=== PATIENT | female | born 1990 | race Caucasian/White ===

== ENCOUNTER 2019-09-17 17:52 | Emergency (ER) | payer MEDICAID, SELFPAY ==
[2019-09-17 18:29] VITALS: BP 113/77; RESP 16; TEMP 36.8; O2SAT 98; BMI 25.2
--- NOTE | 2019-09-17 18:53 | ED_ITS ---
Entered by Rere Jesus, acting as scribe for Sep 17, 2019 17:52 HPI - Psych General: Chief Complaint: Psychiatric Symptoms Stated Complaint: MHE/96 hr hold Time Seen by Provider: 09/17/19 18:52 Source: patient and police Mode of arrival: ambulatory Limitations: no limitations History of Present Illness: HPI Narrative: 29 yo female presents with being on a 96 hold from family. pt states she is fine and denies SI and HI. pt states she was brought in by police and she states only thing is she stopped talking to her mother over a family fight and they are mad. pt denies any other symptoms at this time. complaint: other (pt denies SI or HI states mother 96'd her and she was brought in by police) Onset (ago): hour(s) (today) Duration: other (pt has had depression since she was 14) History of same: Yes Relieving factors: none Exacerbating factors: other (family fighting at [place]) Associated psychiatric symptoms: depression Associated symptoms: Reports depression; Deny homicidal ideation or suicidal ideation Treatments prior to arrival: none Details of plan: no plan Denies SI and HI Review of Systems Const: Denies: fever or chills Eyes: Denies: change in vision ENMT: Denies: throat pain or mouth pain Card: Denies: chest pain Resp: Denies: shortness of breath GI: Denies: abdominal pain, nausea, vomiting or diarrhea : Denies: difficulty urinating Musc: Denies: back pain or joint pain Skin/Breast: Denies: rash Neuro: Denies: headache or behavioral changes Psych: Reports: depression; Denies: suicidal ideation or homicidal ideation Endo: Denies: excessive urination Charles/Lymph: Denies: easy bruising All/Imm: Denies: hives PFSH ED PFSH: Statuses (acute, chronic, etc) shown below reflect problem list status as previously entered and may not be historically accurate Medical History (Updated 09/17/19 @ 22:00 by Estefany Gomez MD) History of depression (Acute) Social History Smoking and tobacco status: current every day smoker Physical Exam Const: COMMON NORMALS: no apparent distress, oriented x3 and healthy appearing HENMT: COMMON NORMALS: normocephalic and external nose normal HEAD & SCALP: normocephalic NOSE: external nose normal Eye: COMMON NORMALS: PERRL PUPIL: Yes PERRL Neck/C-Spine: COMMON NORMALS: full ROM and no lymphadenopathy Chest: COMMONS NORMALS: inspection of chest normal Resp: COMMON NORMALS: normal respiratory effort, no use of accessory muscles and clear to auscultation bilaterally AUSCULTATION: clear to auscultation bilaterally Cardio: COMMON NORMALS: regular rate and regular rhythm RATE: regular rate RHYTHM: regular rhythm GI: COMMON NORMALS: normal to inspection, nondistended, normoactive bowel sounds, soft to palpation, non-tender and no masses PALPATION: Yes soft Back/Pelvis: THORACIC SPINE/UPPER BACK: Yes normal to inspection Extremity: COMMON NORMALS: normal to inspection, full ROM and normal capillary refill Neuro: COMMON NORMALS: oriented x3 Psych: COMMON NORMALS: mental status grossly normal and cooperative Skin: COMMON NORMALS: no rashes or lesions noted GENERAL SKIN EXAM: no rashes or lesions noted MDM - Psych MDM Narrative: Medical decision making narrative: Patient presents with depression. Patient's mother had filled out a 96-hour hold on her. I spoke to psychiatrist Dr. Cummings and he did not feel that she met inpatient criteria. Patient was seen in the ER by Dr. Cummings who rescinded her 96-hour hold. I agree with him as she has no signs of imminent harm here and has no signs of suicidality or homicidality. Patient is stable for discharge back home. Lab Data: Labs: Lab Results 09/17/19 09/17/19 09/17/19 Range/Units 19:00 19:00 19:17 WBC 11.4 H (4.0-10.0) 10^3/ uL RBC 4.68 (4.1-5.3) 10^6/u L Hgb 13.2 (11.5-15.3) g/dL Hct 40.1 (37.0-47.0) % MCV 85.7 (81-99) fL MCH 28.2 (28.0-34.0) pg MCHC 32.9 (30.0-36.0) g/dL RDW 11.9 L (12.1-15.1) % Plt Count 316 (130-400) 10^3/c mm MPV 10.4 (7.4-10.4) fL Neut % (Auto) 86.0 % Lymph % (Auto) 10.6 % [place] % (Auto) 2.6 % Eos % (Auto) 0.2 % Baso % (Auto) 0.2 % Neut # (Auto) 9.8 H (1.8-7.7) 10^3/u L Lymph # (Auto) 1.2 (0.8-4.8) 10^3/u L [place] # (Auto) 0.3 (0.2-0.9) 10^3/u L Eos # (Auto) 0.0 (0.0-0.8) 10^3/u L Baso # (Auto) 0.0 (0.0-0.1) 10^3/u L Nucleated RBC % (a uto) 0 % Nucleated RBCs # 0.0 /100WBC Sodium (136-145) mmol/L Potassium (3.5-5.1) mmol/L Chloride (98-107) mmol/L Carbon Dioxide (22-29) mmol/L Anion Gap (5-19) BUN (6-20) mg/dL Creatinine (0.5-0.9) mg/dL GFR Calculation (90-130) mL/min Glucose (74-109) mg/dL Calcium (8.6-10.0) mg/Dl Total Bilirubin (0.15-1.2) mg/dL AST (0-32) U/L ALT (0-33) U/L Alkaline Phosphata se (35-105) IU/L Total Protein (6.6-8.7) g/dL Albumin (3.5-5.2) g/dL Globulin (1.3-4.6) g/dL HCG, Qual Negative (Negative) Salicylates (3-10) mg/dL Urine Opiates Scre en Negative (Negative) ng/mL Acetaminophen (10-30) ug/mL Ur Barbiturates Sc reen Negative (Negative) ng/mL Ur Phencyclidine S crn Negative (Negative) ng/mL Ur Amphetamines Sc reen Positive H (Negative) ng/mL U Benzodiazepines Scrn Negative (Negative) ng/mL Urine Cocaine Scre en Negative (Negative) ng/mL U Marijuana (THC) Screen Negative (Negative) ng/mL Ethyl Alcohol (0-10) mg/dL 01/13/20 Range/Units 19:17 WBC (4.0-10.0) 10^3/ uL RBC (4.1-5.3) 10^6/u L Hgb (11.5-15.3) g/dL Hct (37.0-47.0) % MCV (81-99) fL MCH (28.0-34.0) pg MCHC (30.0-36.0) g/dL RDW (12.1-15.1) % Plt Count (130-400) 10^3/c mm MPV (7.4-10.4) fL Neut % (Auto) % Lymph % (Auto) % [place] % (Auto) % Eos % (Auto) % Baso % (Auto) % Neut # (Auto) (1.8-7.7) 10^3/u L Lymph # (Auto) (0.8-4.8) 10^3/u L [place] # (Auto) (0.2-0.9) 10^3/u L Eos # (Auto) (0.0-0.8) 10^3/u L Baso # (Auto) (0.0-0.1) 10^3/u L Nucleated RBC % (a uto) % Nucleated RBCs # /100WBC Sodium 136 (136-145) mmol/L Potassium 4.0 (3.5-5.1) mmol/L Chloride 101 (98-107) mmol/L Carbon Dioxide 26 (22-29) mmol/L Anion Gap 13.0 (5-19) BUN 12 (6-20) mg/dL Creatinine 0.7 (0.5-0.9) mg/dL GFR Calculation 99.6 (90-130) mL/min Glucose 131 H (74-109) mg/dL Calcium 10.2 H (8.6-10.0) mg/Dl Total Bilirubin 1.0 (0.15-1.2) mg/dL AST 17 (0-32) U/L ALT 13 (0-33) U/L Alkaline Phosphata se 76 (35-105) IU/L Total Protein 6.9 (6.6-8.7) g/dL Albumin 4.5 (3.5-5.2) g/dL Globulin 2.4 (1.3-4.6) g/dL HCG, Qual (Negative) Salicylates < 0.3 L (3-10) mg/dL Urine Opiates Scre en (Negative) ng/mL Acetaminophen < 5.0 L (10-30) ug/mL Ur Barbiturates Sc reen (Negative) ng/mL Ur Phencyclidine S crn (Negative) ng/mL Ur Amphetamines Sc reen (Negative) ng/mL U Benzodiazepines Scrn (Negative) ng/mL Urine Cocaine Scre en (Negative) ng/mL U Marijuana (THC) Screen (Negative) ng/mL Ethyl Alcohol < 10 (0-10) mg/dL Discharge Plan Discharge Patient Disposition: Home, Self-Care Clinical Impression: Depression Qualifiers: Depression Type: unspecified Qualified Code(s): F32.9 - Major depressive disorder, single episode, unspecified Condition: Stable Prescriptions: No Action dextroamphetamine-amphetamine 20 mg tablet 20 mg PO BID RF: 0 ProAir HFA 90 mcg/actuation HFA aerosol inhaler 1 puff INHALATION Q4H PRN (Reason: Shortness Of Breath) RF: 0 buprenorphine HCl 8 mg tablet, sublingual See Rx Instructions .ROUTE .COMPLEX RF: 0 Latuda 20 mg tablet 20 mg PO DAILY RF: 0 Discharge Orders: Discharge Order (Routine); Ordered 09/17/19 Ordered By: Estefany Gomez Discharge Diet: Advance as tolerated Discharge Activity: Resume usual activity Patient Instructions: Depression (ED) Coding Level of Care Code ED Boom Crane Operator for Chg Fwd Exam Problem Focused The documentation recorded by the Edin shields Bridget Annette, accurately reflects the service I personally performed and the decisions made by , Estefany Gomez MD Sep 17, 2019 17:52
[2019-09-17 19:11] LABS: HCG Qualitative Urine. Negative (Negative)
[2019-09-17 19:42] LABS: Basophils % 0.2 %; Eosinophils % 0.2 %; Hematocrit 40.1 % (37.0-47.0); Hemoglobin 13.2 g/dL (11.5-15.3); Lymphocytes # 1.2 10^3/uL (0.8-4.8); Lymphocytes % 10.6 %; Mean Corpuscular HGB Conc 32.9 g/dL (30.0-36.0); Mean Corpuscular Hemoglobin 28.2 pg (28.0-34.0); Mean Corpuscular Volume 85.7 fL (81-99); Mean Platelet Volume 10.4 fL (7.4-10.4); Monocytes # 0.3 10^3/uL (0.2-0.9); Monocytes % 2.6 %; Neutrophils # 9.8 10^3/uL (1.8-7.7); Nucleated Red Blood Cells % 0 %; Platelet Count 316 10^3/cmm (130-400); Red Blood Count 4.68 10^6/uL (4.1-5.3); Red Cell Distribution Width 11.9 % (12.1-15.1); White Blood Count 11.4 10^3/uL (4.0-10.0)
[2019-09-17 19:58] LABS: Alanine Aminotransferase 13 U/L (0-33); Albumin Level 4.5 g/dL (3.5-5.2); Alkaline Phosphatase 76 IU/L (35-105); Aspartate Amino Transferase 17 U/L (0-32); Blood Urea Nitrogen 12 mg/dL (6-20); Calcium 10.2 mg/Dl (8.6-10.0); Carbon Dioxide 26 mmol/L (22-29); Chloride 101 mmol/L (98-107); Globulin 2.4 g/dL (1.3-4.6); Glomerular Filtration Rate 99.6 mL/min (90-130); Glucose 131 mg/dL (74-109); Sodium 136 mmol/L (136-145); Total Protein 6.9 g/dL (6.6-8.7)
[2019-09-17 20:06] LABS: Barbiturates Screen Urine Negative (Negative); Benzodiazepines Screen Urine Negative (Negative); Cocaine Screen Urine Negative (Negative); Opiate Screen Urine Negative (Negative); PCP Screen Urine Negative (Negative); THC Screen Urine Negative (Negative)
[2019-09-17 20:07] VITALS: BP 105/77; PULSE 98; RESP 16; O2SAT 100
[2019-09-17 20:13] LABS: Amphetamines Screen Urine Positive (Negative)
[2019-09-17 20:14] LABS: Acetaminophen < 5.0 ug/mL (10-30); Alcohol Level < 10 mg/dL (0-10); Salicylate < 0.3 mg/dL (3-10)
--- NOTE | 2019-09-17 20:17 | P.CONIM_ITS ---
Providers/Reason for Consult Consulting Physican/Specialty*: Andrei Cummings MD, Psychiatry. Reason for Consult*: evaluation for rescinding 96 hour hold Requesting Physcian: Estefany Gomez Psych Consult HPI History of Present Illness Guerrero Mullins is a 29 year old female who presents to the emergency room on a 96-hour hold secondary to her mother making accusations about her current functioning. She reports that she has been doing well and that her family and her just have significant conflicts. She was seen inpatient here in November 2018 that evaluation can be seen below. She is positive for amphetamines and has been noted to have methamphetamine difficulties as well as opiate addiction issues. However she does report that she is on a stimulant for ADHD Adderall, and that she has been sober from opiates for some time. And the UDS was negative. Reports my family were that she was using opiates again and that does not bear out in her drug screen. There were also concerns endorsed about her having issues of suicidal thoughts and wanting to . Patient denies all lethality and reports that she would not kill herself and that she is working to get her life back in order so that she can be a good parent again. She reports that there are struggles between her and her mother. She reports that her mother has been a great help during her addiction but it seems at times like she struggles to allow her to have independence when she is doing well. She denied an interest or need for in inpatient treatment. Per [facility] inpatient evaluation: History of Present Illness Date of Service: Nov 16, 2018 Chief Complaint: I've struggled with depression since I was 14. I just want stability. The mental health coordinator told me that I could get on medication faster for came into the hospital. HPI: Aracely Mullins is a 28-year-old woman who has been struggling with clinical depression and psychosocial stressors. Her chief complaint is one of fatigue and constant tiredness to the point where she has difficulty getting her children to school and completing her daily routines. She also reports being sad and blue on a daily basis. She feels hopeless and overwhelmed. She feels a sense of impending doom. She is irritable. She feels she is not thinking clearly. She denied suicide intent or plan. She does have passive suicidal thoughts. She endorses anhedonia. She denies suicidal or homicidal ideation. She denies alcohol or substance use though she readily admits that she is on Suboxone for opiate dependence. Alcohol level was below the measurable limit and urine drug screen was positive only for the prescribed opiates. She began abusing opiates following a dental procedure that started a pre scription for pain medication. She found that the medication was highly desirable. Gave her sense of energy and get calm she was missing without it. Suboxone was began in May 2018. She is receiving the medication from a nurse practitioner at the [facility]. She has already elevated her dose up to 8/2 of Suboxone 4 times per day. She was unaware that this medication would cause significant fatigue. Allergies: Coded Allergies: NO KNOWN ALLERGIES (Unverified , 10/21/14) Active Meds: Current Hospital Medications: Medications (Trade) Dose Ordered Sig/Shruthi Route PRN Reason Start Time Stop Time Status Last Admin Dose Admin Lorazepam (Ativan Tab) 0.5 mg Q4H PRN PO FOR MILD ANXIETY 11/15/18 10:45 11/16/18 05:16 Lorazepam (Ativan Tab) 1 mg Q4H PRN PO FOR MODERATE ANXIETY 11/15/18 10:45 11/16/18 00:43 Lorazepam (Ativan Tab) 2 mg Q4H PRN PO FOR SEVERE ANXIETY 11/15/18 10:45 Lorazepam (Ativan Inj) 2 mg Q4H PRN IM For Severe Aggression 11/15/18 10:45 Haloperidol Lactate (Haldol Inj) 5 mg Q4H PRN IM Severe Aggression 11/15/18 10:45 Diphenhydramine HCl (Benadryl Inj) 50 mg ONCE PRN IV Severe Extrapyramidal Symptoms 11/15/18 10:45 Benztropine Mesylate (Cogentin Tab) 1 mg BID PRN PO Mild Extrapyramidal symptoms 11/15/18 10:45 Benztropine Mesylate (Cogentin Inj) 1 mg ONCE PRN IM Severe Extrapyramidal Symptom 11/15/18 10:45 Acetaminophen (Tylenol Tab) 650 mg Q4H PRN PO FOR MILD PAIN 11/15/18 10:45 Trazodone HCl (Trazodone) 50 mg BEDTIME PRN PO FOR SLEEP 11/15/18 10:45 Nicotine (Nicoderm Patch) 21 mg DAILY PRN TD FOR WITHDRAWAL 11/15/18 10:45 Nicotine Polacrilex (Nicotine Gum) 2 mg Q2H PRN PO Withdrawal 11/15/18 10:45 Haloperidol (Haldol Tab) 5 mg Q4H PRN PO For agitation 11/15/18 10:45 Lorazepam (Ativan Tab) 2 mg Q4H PRN PO FOR AGITATION 11/15/18 10:45 Loperamide HCl (Imodium Cap) 2 mg Q4H PRN PO FOR DIARRHEA 11/15/18 15:30 Clonidine HCl (Catapres Tab) 0.1 mg TID PO 11/15/18 22:00 Methocarbamol (Robaxin) 750 mg TID PO 11/15/18 22:00 11/16/18 05:16 Dicyclomine HCl (Bentyl Po) 20 mg TID PO 11/15/18 22:00 Ondansetron HCl (Zofran Tab) 4 mg Q8H PRN PO FOR NAUSEA 11/15/18 15:30 Buprenorphine/ Naloxone (Suboxone 4-1 Mg Sl Film) 2 each QID SL 11/15/18 22:00 11/16/18 11:46 Past Medical History Past Medical History: Patient states she was first treated with medications for depression at age 14. She was prescribed Wellbutrin. She cannot remember any response to medication but she admits that she was living at a fast and somewhat defiant life and was not really interested in the medication. At age 20 she was admitted to [facility] and diagnosed with bipolar disorder type II. She does not give a convincing story that would confirm that diagnosis. We have no records and as such are unable to establish the validity of the diagnosis. However she was started on Abilify and fluoxetine. Retrial of lithium that she discontinued because of side effects that she read about. She eventually was on other medications and cannot name a single medication regimen that I actually provided significant stability. Medications were discontinued when she became at age 21. She then remained off of medications for 2 years and again became at age 23. Shortly after her delivery of her second child at age 24, her primary care provider initiated her on Prozac and Abilify. She has been on those medications ever since. She did have a short trial of Strattera for an alleged diagnosis of ADHD does that was made by a physician who was out of state and communicating by Mickie. She is ambivalent about whether the medication provided significant benefit. Prior to admission, she discontinued her Prozac. At the time of discontinuation she was taking 40 mg daily. She continued her Abilify 5 mg daily. It was stopped at the time of admission. PFSH NPU PFSH: Statuses (acute, chronic, etc) shown below reflect problem list status as previously entered and may not be historically accurate Medical History (Updated 10/14/19 @ 06:27 by Andrei Cummings MD) History of depression (Acute) Social History Smoking and tobacco status: current every day smoker Mental Status Exam MSE Comments: This is a well-nourished well-developed white female with adequate dress, grooming and eye contact. No abnormal movements. Cooperative with exam in no acute distress. Speech was normal rate and volume. Mood descri bed as okay, affect congruent. Thought process organized. Thought content: Patient denied any suicidal or homicidal ideations, there were no delusions reported or noted, she denied any auditory visual hallucinations. Attention and concentration were intact and memory appeared reliable but none were formally tested. She is alert and oriented x3. Insight and judgment appear fair. Vitals/I&O/Wt Last Vital Signs Temp 98.3 F 09/17/19 18:29 Pulse 112 H 09/17/19 22:52 Resp 20 H 09/17/19 22:52 BP 112/72 09/17/19 22:52 Pulse Ox 100 09/17/19 20:07 A&P Assessment and plan (1) Major depress dis, severe: This is a 29-year-old white female with a long history of depression, addiction, ADHD and trauma who presents on a 96-hour hold secondary to concerns by her mother about her possibly having active addiction however she reports she is been staying away from family due to general conflicts and presents denying the accusations and wanting to continue outpatient treatment. 1. Continue current medication. 2. Agree with rescinding the 96-hour hold as there are no credible signs of imminent risk to self or others or any other behaviors or conditions warranting a 96-hour hold. 3. Recommend continued outpatient treatment and following her current physicians treatment recommendations. 4. Patient advised about resources and emergency/crisis numbers. Status: Acute Code(s): F32.2 - Major depressive disorder, single episode, severe without psychotic features (2) Heroin use disorder, moderate, in early remission, dependence: Status: Acute Code(s): F11.21 - Opioid dependence, in remission (3) ADHD: Status: Acute Code(s): F90.9 - Attention-deficit hyperactivity disorder, unspecified type Attestations NPU Medical Necessity Statement*: N/A. Please see Dr. Gomez's note for final word on hospitalization. However per my evaluation inpatient psychiatric hospitalization is not necessary at this time. Coding Level of Care Code Acute Gardener for Kalin Woodson Diagnoses Major depress dis, severe F32.2 Heroin use disorder, moderate, in early remission, dependence F11.21 ADHD F90.9
[2019-09-17 22:52] VITALS: BP 112/72; PULSE 112; RESP 20
== END 2019-09-17 22:52 | disposition home or self-care (01) ==
PROVIDERS: Emergency Provider Emergency Medicine
DX: F32.9 Major depressive disorder, single episode, unspecified (principal); F17.210 Nicotine dependence, cigarettes, uncomplicated
CPT/HCPCS: 12345; 36415; 80053; 80307; 81025; 85025; 99284; A9270

== ENCOUNTER 2022-06-15 15:51 | Outpatient (CLI) | payer MEDICAID, SELFPAY ==
--- NOTE | 2022-06-15 16:06 | XR_ITS ---
WS: [id number] RIGHT KNEE: 3 VIEW(S) TECHNIQUE: AP, oblique(s) and lateral. HISTORY: RIGHT KNEE PAIN COMPARISON: None available. No fracture or dislocation. No joint space narrowing or osteophytes. No joint effusion. No soft tissue abnormality. XR/XR knee RT 3V* [id number] IMPRESSION: Normal RIGHT knee.
== END 2022-06-15 15:52 | disposition home or self-care (01) ==
LOC: RAD 15:56
PROVIDERS: PCP Family Medicine; Visit Provider Family Medicine
DX: M25.561 Pain in right knee (principal)
CPT/HCPCS: 73562

== ENCOUNTER → 2022-06-29 10:13 | Outpatient (BNVA) | payer MEDICAID, SELFPAY | PROVIDERS: PCP Family Medicine; Visit Provider Student in an Organized Health Care Education/Training Program | DX: M22.41 Chondromalacia patellae, right knee (principal); M23.91 Unspecified internal derangement of right knee | CPT/HCPCS: 99203 ==

== ENCOUNTER 2022-09-17 12:53 | Outpatient (CLI) | payer MEDICAID, SELFPAY ==
--- NOTE | 2022-09-17 13:00 | MR_ITS ---
WS: [id number] MRI RIGHT KNEE HISTORY: knee pain COMPARISON: Radiograph 06/15/2022 Anterior cruciate ligament: Intact. Posterior cruciate ligament: Intact. Medial collateral ligament: Intact. Posterior lateral corner structures: Intact. Medial menisci: Increased signal involving the superior articular surface of the posterior horn towar ds the meniscal root. There is a small defect in the posterior horn towards the meniscal root. Suspic ious for tear. Probably a complex tear. Lateral meniscus: Intact. Normal signal, size and shape. Extensor mechanism: Distal quadriceps tendon and patellar tendons are intact. Fluid and soft tissue: No joint effusion. No Orourke's cyst. Osseous and articular structures: Patellofemoral compartment: Normal. Medial compartment: Focal defect in the cartilage medial femoral condyle. This defect also correlates with the meniscal signal abnormality in the posterior horn. Lateral compartment: Negative. MR/MR knee RT wo con* [id number] IMPRESSION: 1. Abnormal appearance posterior horn medial meniscus towards the meniscal ar t and associated cartilage defect. Meniscal tear with cartilage injury. Menisca l signal abnormality involves predominantly the superior articular surface and free edge. 2. Otherwise no abnormality.
== END 2022-09-17 12:54 | disposition home or self-care (01) ==
LOC: RAD 12:54
PROVIDERS: PCP Family Medicine; Visit Provider Student in an Organized Health Care Education/Training Program
DX: M25.561 Pain in right knee (principal)
CPT/HCPCS: 73721

== ENCOUNTER → 2022-10-08 14:03 | Outpatient (BNVA) | payer MEDICAID, SELFPAY | PROVIDERS: PCP Family Medicine; Visit Provider Student in an Organized Health Care Education/Training Program | DX: S83.241A Other tear of medial meniscus, current injury, right knee, initial encounter (principal); X58.XXXA Exposure to other specified factors, initial encounter; M25.861 Other specified joint disorders, right knee | CPT/HCPCS: 99214 ==

== ENCOUNTER → 2022-11-29 10:13 | Outpatient (BNVA) | payer MEDICAID, SELFPAY | PROVIDERS: PCP Family Medicine; Visit Provider Student in an Organized Health Care Education/Training Program | DX: S83.241A Other tear of medial meniscus, current injury, right knee, initial encounter (principal); X58.XXXA Exposure to other specified factors, initial encounter; M25.861 Other specified joint disorders, right knee | CPT/HCPCS: 99214 ==

== ENCOUNTER 2022-12-09 15:09 | Outpatient (CLI) | payer MEDICAID, SELFPAY | END 2022-12-09 15:10 | disposition home or self-care (01) | LOC: SPT 15:10 | PROVIDERS: PCP Family Medicine; Visit Provider Nurse Practitioner Family | DX: Z46.89 Encounter for fitting and adjustment of other specified devices (principal); M25.561 Pain in right knee | CPT/HCPCS: 97760; L1812 ==

== ENCOUNTER 2022-12-21 10:15 | Day surgery (SDC) | payer MEDICAID, SELFPAY ==
[2022-12-20 12:15] VITALS: BMI 23.3
[2022-12-21] VITALS (11 sets, daily range): BP systolic 87–111; BP diastolic 47–66; PULSE 69–80; RESP 9–16; TEMP 35.9–36.8; O2SAT 91–100
--- NOTE | 2022-12-21 10:40 | W.PM.OPSUD ---
Surgery/Procedure H&P Update DATE OF PROCEDURE: December 21, 2022 DATE H&P PERFORMED: 11/29/22 CHANGES TO PREVIOUS DOCUMENTATION: None PREOP DIAGNOSIS: Right knee medial meniscus tear PRIMARY INDICATION FOR PROCEDURE: Right knee medial meniscus tear PLANNED PROCEDURE: Operation Date: 12/21/22 11:45 Proposed Procedures p Right knee diagnostic arthroscopy with meniscal root repair: [id number],[id number](Right) - DO romelia Stevenson Meniscal Root Repair(Right) - Guanako Valdez DO
[2022-12-21 11:02] LABS: OR HCG Qualitative Urine Negative (Negative)
[2022-12-21] MEDS: sodium chloride 0.9% 1,000 ML 30 ML IV (11:30)
[2022-12-21] MEDS: ketorolac 30 mg/mL INJ IVP (11:31)
[2022-12-21] MEDS: acetaminophen 1,000 MG/100 ML PIGGYBACK 400 MG IV (11:31)
[2022-12-21] MEDS: ceFAZolin 2,000 MG in sodium chloride 0.9% (plus) 50 ML 100 MG IV (11:49)
[2022-12-21] MEDS: lidocaine-epi 2% 20 mL INJ INJECTION ×2 (12:29→12:45)
--- NOTE | 2022-12-21 12:54 | PM.OP2 ---
Brief Operative Note Date of procedure: 12/21/22 Pre-op diagnosis: Right knee medial meniscus tear Post-op diagnosis: other (Right knee extensive synovitis, patellofemoral chondromalacia, no meniscal tear) Procedure Done: Right knee diagnostic and surgical arthroscopy with extensive synovectomy of the medial, lateral and patellofemoral compartment Right knee diagnostic and surgical arthroscopy with patellofemoral compartment chondroplasty. Surgeon: Guanako Valdez Estimated blood loss (mL): 2 Complications: None Post-op Plan: Patient taken to PACU in stable condition recovering well. Patient's pain controlled. Will receive appropriate discharge instructions as well as pain medication postoperatively. Patient will be on aspirin 81 mg daily for blood clot prevention will be encouraged to range of motion of the knee as tolerated. She will be allowed to weight-bear as tolerated to the right lower extremity. Ice as needed for pain and swelling. We will have patient follow-up with us in the office in 2 weeks. Patient understands and agrees with current plan. All questions answered. Condition: stable Disposition: same day Coding Level of Care Code Acute Code for Kalin Woodson
--- NOTE | 2022-12-21 12:54 | PM.PACU ---
PACU note Narrative: Patient taken to PACU in stable condition recovering well. Pain controlled. Dressings on in place clean dry and intact. Distal pulses are palpable. Toes warm well perfused. Patient is able to wiggle toes plantarflex and dorsiflex ankle sensation intact to light touch distally. Exam: awake Disposition: discharged
--- NOTE | 2022-12-21 12:55 | P.OP_ITS ---
Operative Report Date of procedure: December 21, 2022 Pre-op diagnosis: Preop Diagnosis Right knee medial meniscus tear Procedure: Post-op diagnosis: Right knee extensive synovitis Right knee patellofemoral chondromalacia Procedure done: Right knee diagnostic and surgical arthroscopy with extensive synovectomy of medial, lateral and patellofemoral compartments Right knee diagnostic and surgical arthroscopy with patellofemoral compartment chondroplasty Surgeon: Guanako Valdez DO Estimated blood loss: 2 Tourniquet: 19 minutes IV fluids: See anesthesia record Complications: None Findings: See operative report narrative Condition: stable Disposition: same day Brief History: Patient is a 32-year-old female who has been worked up for right knee pain in the outpatient setting. Patient's had continued pain that is failed conservative approach given her young age an MRI was ordered she had some patellofemoral pain as well as medial pain she was found to have findings concerning for medial meniscus tear on MRI. No significant findings in the patellofemoral space however concerning findings for meniscal tear possible extension of the root. Throughout my follow-up with her in the outpatient setting she had more more focal pain on the medial aspect of the knee we talked about treatment options as far as cortisone versus surgical intervention through shared decision making given her age and per her request would like to get this fixed more than just a corticosteroid injection. Concerning for possible insufficient meniscus even towards the root we do through shared decision making agreed to proceed with a right knee diagnostic and surgical arthroscopy she does still complain of some crepitus of her patella and expressed to her that this would be something we will be able to evaluate intraoperatively as well. Patient understand the ins and outs of the procedure the risk benefits compli cation alternatives to treatment options.? Understanding risk of surgery they agree to proceed with surgical intervention.? Patient understand this may not provide her complete symptomatic relief of her pain.? Understanding this and patient agree to proceed with surgical intervention all questions answered. MR/MR knee RT wo con* [id number] IMPRESSION: ? 1.? Abnormal appearance posterior horn medial meniscus towards the meniscal root and associated cartilage defect. Meniscal tear with cartilage injury. Meniscal signal abnormality involves predominantly the superior articular surface and free edge. 2.? Otherwise no abnormality. ? ? Procedure: Patient seen and evaluated in the preoperative holding area.? Consent was reviewed and signed with patient.? Correct extremity was then marked.? Patient seen evaluated Anesthesia Department once cleared for surgery patient was taken back to the operative suite.? Patient was transported onto the OR table in supi ne position.? All bony prominences well-padded patient was appropriate secured to the bed.? Once appropriately anesthetized a nonsterile tourniquet was applied to the right thigh.? The right lower extremity was then prepped and draped in standard orthopedic fashion.? Final timeout performed.? Patient received appropriate preoperative antibiotics. Patient received local anesthetic of lidocaine with epinephrine into the joint as well as around the portal sites.? Esmarch tourniquet was used to exsanguinate the right lower extremity and tourniquet was insufflated to 250 mmHg A standard 2 portal vertical incision diagnostic and surgical arthroscopy of the right knee was performed in standard fashion.? Small stab incision made in the inferolateral portal introduced trocar and arthroscope into the suprapatellar pouch.? Suprapatellar pouch was subsequently visualized and found to have significant synovitis but no loose bodies.? Patient had noticeable significant inflamed infrapatellar fat pad and thickening hypertrophic within the patellofemoral compartment consistent with fat pad impingement. ?The medial gutter was free of loose bodies I then introduced the arthroscope into the medial compartment.? Within the medial compartment I then established my inferior medial working portal utilizing spinal needle outside in technique.? Once established I then visualized our articular cartilage of the medial compartment with a valgus stress.? Patient was found to have grade 0 chondromalacia throughout the medial compartment.? Next I inspected the meniscus.? With an arthroscopic probe was utilized to visual? all aspects of the meniscus.? Meniscal root was found to be intact.? Meniscus was found to be completely intact with no evidence of tear, no chondral injury was noted. A simple synovectomy of the medial compartment was performed with arthroscopic shaver. This completed medial compartment work. Next a introduced the arthroscope to the intercondylar notch.? PCL and ACL were intact. patient had significant thickening of the infrapatellar fat pad spanning into the medial and lateral compartments.? I then performed an extensive synovectomy with the arthroscopic shaver of the patellofemoral medial and lateral compartments as well as the intercondylar notch. Advance the scope into the retrocruciate space and no loose bodies were found. Next I introduced the arthroscope into the lateral compartment the lateral compartment was found to have grade?0 chondromalacia.??Meniscus was inspected with arthroscopic probe no evidence of meniscal tear and the root was intact.? This completed work in the lateral compartment. Next of the arthroscope was placed into the lateral gutter and this was free of loose bodies.? Finally I reintroduced the arthroscope into the patellofemoral compartment.? The patellofemoral was found to have grade 2 chondromalacia focused underneath the patella. ?At this point I utilized arthroscopic shaver as well as thermal wand to perform fat pad synovectomy.? Once my synovectomy was performed I evaluated the chondral injury under the patella. As well as range the knee to evaluate for any pronounced crepitus. At this point introduced arthroscopic shaver to perform a gentle patellofemoral compartment chondroplasty and taking these grade II chondromalacia to stable articular cartilage. This completed my work of the patellofemoral space. I then stressed the patella and the patella was found to be stable with no evidence of instability. ? I then switch my portal sites to the medial working portal. Completed the rest of my synovectomy and the rest of my examination arthroscopy was normal. Tourniquet was deflated hemostasis satisfactory. All fluid was suctioned from the joint.? All instruments were withdrawn.? Portal sites were closed with interrupted nylon suture.? portal sites were then covered with with Xeroform 4 x 4's ABD Curlex and Bossman wrap.? Patient was then subsequently awakened from anesthesia and taken to PACU in stable condition. Disposition: Patient taken to PACU in stable condition recovering well.? Will receive appropriate discharge structure as well as pain medication postoperatively as well as daily aspirin for DVT prophylaxis.? We will have patient follow-up with us in the office in 2 weeks.? We will weightbearing as tolerated to the right lower extremity.? Patient understands and agrees with current plan.? All questions answered.
--- NOTE | 2022-12-21 12:56 | ANES.PREANE2 ---
Pre-Anesthetic Assessment Height/Weight: Height 1.57 m Weight 58.06 kg Temp Pulse Resp BP Pulse Ox O2 Del Method 97.7 F 78 16 111/60 98 Room Air 12/21/22 10:42 12/21/22 10:42 12/21/22 10:42 12/21/22 10:42 12/21/22 10:42 12/21/22 11:06 Preop Diagnosis: Right knee medial meniscus tear Operation Date: 12/21/22 11:45 Proposed Procedures p Right knee diagnostic arthroscopy with meniscal root repair: [id number],S83.249A(Right) - Guanako Valdez DO s Meniscal Root Repair(Right) - Guanako Valdez DO Familial anesthetic complications: none Was Beta Urszula taken within 24 hours: N/A Was Clonidine taken within 24 hours: N/A Last intake: Intake Last Liquid Date 12/20/22 Last Liquid Time 23:00 Last Solid Date 12/20/22 Last Solid Time 21:00 Social Tobacco and No alcohol Heroin, nazanin Exam alert, oriented x 3 and regular rate & rhythm Airway Submandibular: within normal limits Cervical ROM: within normal limits Mallampati: Class II Dentition: false (upper) Pulmonary Chronic Obstructive Pulmonary Disease Neuropsych Anxiety and Depression Anesthetic Plan ASA status: 3 Medications/Allergies Home Medications Medication Instructions Recorded Confirmed Last Taken Type levonorgestrel 17.5 mcg/24 hrs 17.5 device intrauterine 1XD 12/07/22 12/20/22 12/19/22 History (5yrs) 19.5mg intrauterine device (Kyleena) meloxicam 15 mg tablet 15 mg PO DAILY 12/07/22 12/20/22 12/20/22 History hinged knee brace #1 ea 12/09/22 12/09/22 Unknown Rx Allergies Allergy/AdvReac Type Severity Reaction Status Date / Time No Known Allergies Allergy Verified 12/20/22 12:07 Current Medications Generic Name Dose Route Start Last Admin Trade Name Freq PRN Reason Stop Dose Admin Sodium Chloride 1,000 mls @ 30 mls/hr 12/21/22 10:45 12/21/22 11:30 Sodium Chloride 0.9% IV 12/22/22 10:44 30 mls/hr .Q24H DEREK Administration PFSH Anesthesia Medical History History of depression Impingement syndrome involving patellar fat pad of right knee Medial meniscus tear Patella, chondromalacia Social History Smoking and tobacco status: current every day smoker Data Anesthesia Cardiac Studies: No Data to Display
[2022-12-21] MEDS: HYDROcodone-acetaminophen 5-325 mg Tablet 1 TAB PO (13:59)
--- NOTE | 2022-12-21 14:44 | ANE.PACU2 ---
Inpatient post-anesthesia follow up: Airway intact: Yes Vital signs: Temperature 97.7 F Pulse Rate 78 Respiratory Rate 14 Blood Pressure 87/52 Pulse Oximetry 95 Oxygen Delivery Me thod Room Air Oxygen Flow Rate 8 Fraction of Inspir ed Oxygen Hydration adequate: Yes Nausea and vomiting: No Pain level: 3 Mental status: Baseline
== END 2022-12-21 14:30 | disposition home or self-care (01) ==
PROVIDERS: Anesthesiology; PCP Family Medicine; Visit Provider Student in an Organized Health Care Education/Training Program
PROC: (CPT 29870; principal; 2022-12-21 11:25)
DX: S83.241A Other tear of medial meniscus, current injury, right knee, initial encounter (principal); X58.XXXA Exposure to other specified factors, initial encounter; M25.861 Other specified joint disorders, right knee; M22.41 Chondromalacia patellae, right knee; J44.9 Chronic obstructive pulmonary disease, unspecified; F17.200 Nicotine dependence, unspecified, uncomplicated
CPT/HCPCS: 29876; 81025; 84703; J0131; J0690; J1100; J1170; J1885; J2250; J2405; J2704; J3010; J7030

== ENCOUNTER 2024-10-19 19:35 | Emergency (ER) | payer MEDICAID, SELFPAY ==
[2024-10-19 19:44] VITALS: BP 116/66; PULSE 81; RESP 16; TEMP 36.8; O2SAT 96; BMI 24.7
[2024-10-19 20:34] LABS: Influenza A POSITIVE (Negative); Influenza B NEGATIVE (Negative); Respiratory Syncytial Virus Ce NEGATIVE (Negative); SARS-CoV-2 PCR NEGATIVE (Negative)
--- NOTE | 2024-10-19 20:46 | W.ED.URI ---
HPI - URI/Sore Throat General: Chief Complaint: Upper Respiratory Infection Stated Complaint: fever broke/intense abdominal pain/throwing up Time Seen by Provider: 10/19/24 20:37 Source: patient Mode of arrival: ambulatory Limitations: no limitations History of Present Illness: Patient is a 34-year-old female presents to ED today with a complaint of flulike symptoms and epigastric pain as well as nausea and vomiting. She states she began feeling sick approximately 5 days ago with fevers, chills, body aches, cough, nasal congestion. She states she was seen at the walk-in clinic and had a negative flu swab performed but was told she most likely had influenza. She states she has been treating conservatively with Mucinex, Tylenol, Ibuprofen. Today began developing some epigastric pain as well as nausea and vomiting. MD elicited complaint: fever, cough, sore throat, nasal congestion and other (N/V) Onset (ago): day(s) Severity: mild Description of mucous: clear Able to tolerate fluids by mouth: Yes Exacerbating factors: nothing Relieving factors: nothing Associated symptoms: Reports abdominal pain, chills, fever(s), nasal congestion, nausea and vomiting; Deny chest pain, diarrhea or headache(s) Related Data Home Medications ?Medication ?Instructions ?Recorded ?Confirmed levonorgestrel 17.5 mcg/24 hr (up 17.5 device intrauterine 1XD 12/07/22 04/19/23 to 5 yrs) 19.5mg intrauterine device (Kyleena) ibuprofen 200 mg capsule 200 mg PO Q6H PRN 04/19/23 04/19/23 Previous Rx's ?Medication ?Instructions ?Recorded hyaluronate sodium, stabilized 60 60 mg (3 mL) intra-articular ONCE 04/19/23 mg/3 mL intra-articular syringe #3 mL (Durolane) Allergies Allergy/AdvReac Type Severity Reaction Status Date / Time No Known Allergies Allergy Verified 04/19/23 09:01 Review of Systems Const: Reports: fever(s), chills, body aches, change in appetite and fatigue ENMT: Reports: throat pain, odynophagia and nasal congestion Card: Denies: chest pain Resp: Reports: non-productive cough and chest congestion GI: Reports: abdominal pain, nausea and vomiting; Denies: hematemesis or diarrhea : Denies: flank pain, difficulty voiding, dysuria, urinary frequency, urinary urgency or urinary hesitancy Musc: Denies: neck pain, back pain, extremity pain, extremity swelling, joint swelling or joint redness Skin/Breast: Denies: rash Neuro: Denies: headache(s), numbness in extremities, weakness in extremities, sensory changes or dizziness [facility] ED PFSH: Medical History Impingement syndrome involving patellar fat pad of right knee Medial meniscus tear Patella, chondromalacia History of depression Social History Smoking and tobacco/nicotine status: current every day tobacco/nicotine user Substance/Drug Use: never Physical Exam Const: COMMON NORMALS: no acute distress, average body habitus, patient oriented x3, no limitations, healthy appearing, alert and well nourished GENERAL APPEARANCE: cooperative ORIENTATION/CONSCIOUSNESS: Yes awake, Yes oriented to person, Yes oriented to place and Yes oriented to time Eye: COMMON NORMALS: no scleral icterus Resp: COMMON NORMALS: normal respiratory effort and clear to auscultation bilaterally AUSCULTATION: clear to auscultation bilaterally Cardio: COMMON NORMALS: regular rate and regular rhythm RATE: regular rate RHYTHM: regular rhythm GI: COMMON NORMALS: Normal to inspection, nondistended, normoactive bowel sounds present, Soft to palpation, No hepatosplenomegaly present and no masses INSPECTION: Yes normal to inspection AUSCULTATION: Yes normoactive bowel sounds PALPATION: Yes Soft to palpation, Yes Tenderness to palpation present (GI) (mild epigastric; non surgical exam), No Guarding due to palpation present (GI), No Rigid due to palpation and Yes No hepatosplenomegaly present : COMMON NORMALS: Yes no CVA tenderness BLADDER/KIDNEY EXAM: Yes no CVA tenderness Back/Pelvis: COMMON NORMALS: no CVA tenderness Neuro: COMMON NORMALS: patient oriented x3 SENSORIUM/ORIENTATION: Yes alert, Yes oriented to person, Yes oriented to place and Yes oriented to time Course Vital Signs: Vital signs: Vital Signs Temperature 98.2 F 10/19/24 19:44 Pulse Rate 81 10/19/24 19:44 Respiratory Rate 16 10/19/24 19:44 Blood Pressure 116/66 10/19/24 19:44 Pulse Oximetry 96 10/19/24 19:44 Oxygen Delivery Me thod Room Air 10/19/24 19:44 MDM - URI/Sore Throat Medical Decision Making Patient is positive for influenza A. Her vital signs are stable. Abdominal examination is nonsurgical. Discussed continued conservative therapies. Return to ED precautions discussed. Medical Records I reviewed the patient's medical records. Lab Data Laboratory Results Coronavirus (PCR) Negative (Negative) 10/19/24 19:50 Influenza A (PCR) Positive (Negative) 10/19/24 19:50 Influenza Type B (PCR) Negative (Negative) 10/19/24 19:50 RSV (PCR) Negative (Negative) 10/19/24 19:50 No radiology studies performed this visit Discharge Plan Discharge Patient Disposition: Home Clinical Impression: Influenza Condition: Stable Prescriptions: No Action ibuprofen 200 mg capsule 200 mg PO Q6H PRN Durolane 60 mg/3 mL syringe 60 mg intra-articular ONCE Qty: 3 0RF Kyleena 17.5 mcg/24 hrs (5 yrs) 19.5 mg intrauterine device 17.5 device intrauterine 1XD Discharge Orders: Discharge ED (Routine); Ordered 10/19/24 Ordered By: Lara Scott Referrals: Adis Dodge MD [Primary Care Provider] - Patient Instructions: Influenza (DC) Print Language: [place]an Coding Level of Care Code ED Vitamin Manager for Kalin Woodson
== END 2024-10-19 20:56 | disposition home or self-care (01) ==
PROVIDERS: Emergency Medicine; Emergency Provider Physician Assistant; PCP Family Medicine
DX: J10.1 Influenza due to other identified influenza virus with other respiratory manifestations (principal); Z11.52 Encounter for screening for COVID-19; Z72.0 Tobacco use
CPT/HCPCS: 87637; 99283